=== PATIENT | female | born 1995 | race African-American/Black ===

== ENCOUNTER 2022-11-20 19:31 | Emergency (ER) | payer SELFPAY ==
[~2022-11-20] VITALS: Ht 162.6 cm; Wt 72.6 kg
[2022-11-20] MEDS ORDERED: ACET1TAB23 PO (20:29)
[2022-11-20 20:39] VITALS: BP 127/70; TEMP 98.8; O2SAT 100
== END 2022-11-20 20:39 | disposition home or self-care (01) ==
LOC: ER 19:37
DX: S16.1XXA Strain of muscle, fascia and tendon at neck level, initial encounter (principal); M54.50 Low back pain, unspecified; Z79.899 Other long term (current) drug therapy; V43.52XA Car driver injured in collision with other type car in traffic accident, initial encounter; Y93.89 Activity, other specified; Y92.410 Unspecified street and highway as the place of occurrence of the external cause; Y99.8 Other external cause status
CPT/HCPCS: A4663